=== PATIENT | female | born 1960 | race Caucasian/White ===

== ENCOUNTER → 2017-12-22 | Outpatient (CLI) | payer BC ==
[~2017-12-22] MED LIST: CHOL200059 PO; CYAN1000 IJ; FERR-53 PO; FLUT16SP19 NS; GABA-503 PO; GABA-549 PO; LEVO-3 PO; LEVO200T50 PO; LEVO88TA45 PO; LISI-362 PO; MULT1TAB64 PO
[2017-12-22 07:59] LABS: PLATELET COUNT, AUTOMATED 202 K/uL (150-450)
[2017-12-22 10:30] LABS: LDL CHOLESTEROL 116 mg/dl
== END ==
LOC: LAB 07:19
PROVIDERS: ATTEND Internal Medicine
DX: E78.5 Hyperlipidemia, unspecified (principal); E03.9 Hypothyroidism, unspecified; E53.8 Deficiency of other specified B group vitamins; E53.9 Vitamin B deficiency, unspecified; I10 Essential (primary) hypertension; E55.9 Vitamin D deficiency, unspecified; Z98.84 Bariatric surgery status
CPT/HCPCS: 36415; 81001; 82040; 82247; 82306; 82310; 82374; 82435; 82465; 82565; 82607; 82728; 82746; 82947; 83036; 83540; 83550; 83718; 84075; 84132; 84155; 84295; 84443; 84450; 84460; 84478; 84520; 84550; 85025

== ENCOUNTER → 2018-01-23 | Outpatient (CLI) | payer BC ==
--- NOTE | 2018-01-23 12:26 | EKG ---
FACILITY: [facility] PATIENT NAME: LEONARDA URIOSTEGUI : [id number] MR: [id number] V: [id number] EXAM DATE: ORDERING PHYSICIAN: TALI LAWRENCE TECHNOLOGIST: AAKASH Test Reason : PREOP-FOOT Blood Pressure : / mmHG Vent. Rate : 058 BPM Atrial Rate : 058 BPM P-R Int : 174 ms QRS Dur : 094 ms QT Int : 440 ms P-R-T Axes : 004 015 022 degrees QTc Int : 431 ms Sinus bradycardia Otherwise normal ECG When compared with ECG of 28-APR-2017 19:55, No significant change was found Confirmed by ORLANDO ARREOLA ([id number]) on 01/23/2018 1:49:09 PM Referred By: HOWARD Confirmed By:ORLANDO ARREOLA
== END ==
LOC: RESP 12:12
PROVIDERS: ATTEND Anesthesiology
DX: Z01.810 Encounter for preprocedural cardiovascular examination (principal); G89.18 Other acute postprocedural pain; R20.2 Paresthesia of skin; R00.1 Bradycardia, unspecified
CPT/HCPCS: 93005

== ENCOUNTER → 2018-07-08 | Outpatient (CLI) | payer BC ==
[~2018-07-08] MED LIST changes: +AZIT-17 PO; +ENOX40DI8 SQ; +MELA1TAB23 PO
[2018-07-08 12:34] LABS: PLATELET COUNT, AUTOMATED 259 K/uL (150-450)
--- NOTE | 2018-07-08 12:41 | EKG ---
FACILITY: [facility] [place] PATIENT NAME: LEONARDA URIOSTEGUI : [id number] MR: [id number] V: [id number] EXAM DATE: ORDERING PHYSICIAN: RODOLFO MOCK TECHNOLOGIST: AAKASH Chicas Reason : PREOP-NOSE Blood Pressure : / mmHG Vent. Rate : 059 BPM Atrial Rate : 059 BPM P-R Int : 174 ms QRS Dur : 088 ms QT Int : 440 ms P-R-T Axes : 020 016 040 degrees QTc Int : 435 ms Sinus bradycardia Otherwise normal ECG When compared with ECG of 23-JAN-2018 12:14, No significant change was found Confirmed by MYRANDA EMLARA ([id number]) on 07/08/2018 2:34:22 PM Referred By: NISH Confirmed By:MYRANDA MELARA
== END ==
LOC: LAB 12:13
PROVIDERS: ATTEND Otolaryngology
DX: Z01.818 Encounter for other preprocedural examination (principal); R00.1 Bradycardia, unspecified; I10 Essential (primary) hypertension
CPT/HCPCS: 36415; 82040; 82247; 82310; 82374; 82435; 82565; 82947; 84075; 84132; 84155; 84295; 84450; 84460; 84520; 85025; 93005

== ENCOUNTER → 2018-07-11 | Outpatient (CLI) | payer BC ==
[~2018-07-11] MED LIST changes: +MELA1TAB15 PO
== END ==
LOC: LAB 08:12
PROVIDERS: ATTEND Internal Medicine
DX: E11.9 Type 2 diabetes mellitus without complications (principal); E53.8 Deficiency of other specified B group vitamins; E03.9 Hypothyroidism, unspecified; E78.5 Hyperlipidemia, unspecified; E55.9 Vitamin D deficiency, unspecified; Z98.84 Bariatric surgery status
CPT/HCPCS: 36415; 82306; 82465; 82607; 82746; 83036; 83718; 84443; 84478

== ENCOUNTER → 2018-07-21 | Outpatient (CLI) | payer BC ==
[~2018-07-21] MED LIST changes: +ERGO500037 PO
== END ==
LOC: LAB 15:30
PROVIDERS: ATTEND Internal Medicine
DX: R68.89 Other general symptoms and signs (principal)
CPT/HCPCS: 87081

== ENCOUNTER 2018-07-27 02:41 | Day surgery (SDC) | payer BC ==
[2018-07-27] VITALS (7 sets, daily range): BP systolic 124–141; BP diastolic 75–90
[~2018-07-27] VITALS: Ht 170.2 cm; Wt 94.8 kg
[2018-07-27] MEDS ORDERED: BACITRACIN OINT 15 GM TUBE TP ONE (06:44)
[2018-07-27] MEDS ORDERED: NS(*) 0.9% 250 ML BAG 250 ML ONE (06:44)
[2018-07-27] MEDS ORDERED: OXYMETAZOLINE SPRAY 15 ML BTL ONE (06:44)
[2018-07-27] MEDS ORDERED: LIDO/EPI 1% MDV 1:100,000 20ML INFIL ONE (06:44)
[2018-07-27] MEDS ORDERED: ceFAZolin(*) 1 GM VIAL 1 GM in NS(*) 0.9% 100 ML ADDVANT BAG 100 ML IVPB ONE (06:55)
[2018-07-27] MEDS ORDERED: ONDANSETRON 4 MG/2 ML VIAL ONE (07:03)
[2018-07-27] MEDS ORDERED: PROPOFOL EMUL(*) 10MG/ML 20 ML 20 ML ONE ×2 (07:03→07:08)
[2018-07-27] MEDS ORDERED: fentaNYL CITR 100 MCG/2 ML AMP ONE ×2 (07:03→08:34)
[2018-07-27] MEDS ORDERED: PROPOFOL EMUL(*) 10MG/ML 20 ML 40 ML ONE (07:03)
[2018-07-27] MEDS ORDERED: LIDOCAINE MPF 1% 5 ML VIAL ONE (07:03)
[2018-07-27] MEDS ORDERED: APREPITANT 40 MG CAP PO ONE (07:05)
[2018-07-27] MEDS ORDERED: KETAMINE HCL-NS 50 MG/5 ML SYR ONE (07:08)
[2018-07-27] MEDS ORDERED: LIDOCAINE 2% JELLY 5 ML TUBE ONE (07:10)
[2018-07-27] MEDS ORDERED: ceFAZolin(*) 2GM/D5W 50ML 50 ML IVPB ONE (07:15)
[2018-07-27] MEDS ORDERED: OFLOXACIN 0.3% OP SOLN 5ML BTL ONE (07:31)
[2018-07-27] MEDS ORDERED: LIDOCAINE/SOD BICARB 8.4% SYR ID ONE (07:40)
[2018-07-27] MEDS ORDERED: NORMOSOL R SOLN(*) 1000 ML BAG 1,000 ML IV PRN (07:40)
[2018-07-27] MEDS ORDERED: FAMOTIDINE 20 MG TAB PO ONE (07:40)
[2018-07-27] MEDS ORDERED: MIDAZOLAM 2 MG/2 ML VIAL IVP PRN (07:40)
[2018-07-27] MEDS ORDERED: DEXAMETHASONE SOD 4 MG/ML VIAL ONE (07:47)
[2018-07-27] MEDS ORDERED: PHENYLEPHRINE/NS/PF 0.4MG/10ML ONE (07:50)
[2018-07-27] MEDS ORDERED: LABETALOL HCL 20 MG/4 ML SYR ONE (08:31)
[2018-07-27] MEDS ORDERED: HYDR-653 PO (08:38)
[2018-07-27] MEDS ORDERED: CEFU500T10 PO (08:39)
[2018-07-27] MEDS ORDERED: OFLO5DRO45 RIGHT EAR (08:49)
--- NOTE | 2018-07-27 08:54 | OPERATIVE REPORT 1 ---
EVENT DATE: July 27, 2018 SURGEON: Lenin Collier Jr., MD ANESTHESIOLOGIST: Zuhair Louis MD ANESTHESIA: LMA. PROCEDURE PERFORMED 1. Septoplasty. 2. Submucous resection of bilateral inferior turbinates. 3. Right myringotomy and tympanostomy tube. PREOPERATIVE DIAGNOSES 1. Nasal septal deviation. 2. Bilateral inferior turbinate hypertrophy. 3. Right eustachian tube dysfunction. POSTOPERATIVE DIAGNOSES 1. Nasal septal deviation. 2. Bilateral inferior turbinate hypertrophy. 3. Right eustachian tube dysfunction. INDICATIONS Please refer to preoperative note. DESCRIPTION OF PROCEDURE The patient was positively identified in the preoperative area. She was accompanied by her . Risks were again explained, including but not limited to bleeding, infection, tympanic membrane perforation, nasoseptal perforation and those associated with anesthesia. She acknowledged understanding those risks. She was then brought back to the operative suite, laid supine on the operative table and anesthesia was administered. Once asleep, the patient was positioned and prepped and draped in usual sterile fashion. I began with the insertion of the tympanostomy tube. The microscope was brought into place and speculum was placed in the right external auditory canal. The tympanic membrane was visualized. Myringotomy was made in the anterior inferior quadrant. An Aguilar Grommet tube was then carefully placed and myringotomy positioned into place. Oxydrops were instilled. The patient was then repositioned for the septoplasty. 10 cc of 1% lidocaine with epi was injected in the bilateral anterior nasoseptal mucosa and along the face of the bilateral inferior turbinate. Both nasal cavities were subsequently packed with cottonoids containing Afrin solution. These were subsequently removed and nasal endoscopy was performed. This was notable for a right nasoseptal deviation in the left inferior septal spur. A Bhavin incision was than made in the left anterior nasoseptal mucosa. A subperichondrial flap was elevated. Incision was then made into the anterior nasoseptal cartilage. The contralateral flap was raised. The deviated portion of the nasoseptal cartilage and bone was then removed. The Bhavin incision was then reapproximated within the Chromic suture. I then addressed the inferior turbinate. A stab incision was made at the face of the left inferior turbinate. A Hayden elevator was used to utilize to elevate the mucosa off the underlying bone. A submucous resection was then performed with a turbinate blade of the microdebrider. The stab incision was then cauterized and suctioned with Bovie electrocautery. The contralateral inferior turbinate was addressed in a similar fashion. Bilateral nasoseptal splints were then placed and secured to the columellar suture. The patient was then turned to Anesthesia for emergence. ESTIMATED BLOOD LOSS 25 cc. COMPLICATIONS No complications. MTDD
[2018-07-27] MEDS ORDERED: hydrALAZINE HCL 20 MG/ML VIAL ONE (09:16)
== END 2018-07-27 09:45 | disposition home or self-care (01) ==
LOC: OR 02:41
PROVIDERS: ATTEND Otolaryngology
DX: J34.2 Deviated nasal septum (principal); J34.3 Hypertrophy of nasal turbinates; H69.91 Unspecified Eustachian tube disorder, right ear; I10 Essential (primary) hypertension; E11.9 Type 2 diabetes mellitus without complications; Z79.84 Long term (current) use of oral hypoglycemic drugs
CPT/HCPCS: 30140; 30520; 36416; 69436; 82948; J0360; J1100; J2001; J2370; J2405; J2704; J3010; J3490; J7050; J8501; J0690

== ENCOUNTER → 2018-09-18 | Outpatient (CLI) | payer BC ==
[~2018-09-18] MED LIST changes: +CEFU500T10 PO; -GABA-503 PO; +GABA-533 PO; +HYDR-653 PO; +OFLO5DRO45 RIGHT EAR
--- NOTE | 2018-09-22 09:01 | RADIOLOGY IMAGING REPORT ---
FACILITY: [facility] PATIENT NAME: LEONARDA URIOSTEGUI : [id number] MR: [id number] V: [id number] EXAM DATE: [id number] ORDERING PHYSICIAN: MYRANDA MELARA TECHNOLOGIST: Lynda Brown PROCEDURE:BILATERAL DIGITAL SCREENING MAMMOGRAM WITH CAD ASSISTED INTERPRETATION & 3D TOMOSYNTHESIS COMPARISON:Prior mammograms 10/09/16, 01/24/15, 09/30/12. INDICATIONS:screening FINDINGS: Scattered fibroglandular densities are seen throughout the breasts. The parenchymal pattern has remained stable allowing for difference in mammographic technique & patient positioning. There is no evidence of malignant appearing mass, malignant appearing calcifications or other secondary sign of malignancy in either breast. DIAGNOSTIC CATEGORY 1--NEGATIVE. RECOMMENDATIONS: ROUTINE MAMMOGRAM AND CLINICAL EVALUATION. IMPRESSION: BIRADS 1: Negative. No significant abnormality is seen. Dictated by: Constance Gibbs M.D. on 09/21/2018 at 10:35 Transcribed by: DEANNA on 09/21/2018 at 11:50 Approved by: Constance Gibbs M.D. on 09/22/2018 at 9:00 [facility]
== END ==
LOC: MAMO 02:01
PROVIDERS: ATTEND Internal Medicine
DX: Z12.31 Encounter for screening mammogram for malignant neoplasm of breast (principal)
CPT/HCPCS: 77063; 77067

== ENCOUNTER → 2018-12-04 | Outpatient (CLI) | payer BC ==
[~2018-12-04] MED LIST changes: +CEPH500C24 PO; +KETO30CA16 IM
== END ==
LOC: LAB 13:25
PROVIDERS: ATTEND Nurse Practitioner Primary Care
DX: M25.532 Pain in left wrist (principal)
CPT/HCPCS: 36415; 84550